=== PATIENT | female | born 1950 | race Caucasian/White ===

== ENCOUNTER 2017-05-02 20:45 | Emergency (ER) | payer BC, OTHER ==
[~2017-05-02] VITALS: Ht 167.6 cm; Wt 70.3 kg
[2017-05-02 20:52] VITALS: BP 135/81
== END 2017-05-02 21:26 | disposition left against medical advice (07) ==
LOC: ER 20:45
DX: Z53.21 Procedure and treatment not carried out due to patient leaving prior to being seen by health care provider (principal)